=== PATIENT | male | born 1960 | race Two or more races ===

== ENCOUNTER 2019-12-11 23:47 | Emergency (ER) | payer MEDICAID ==
[~2019-12-11] VITALS: Ht 172.7 cm; Wt 83.9 kg
[2019-12-11 23:58] VITALS: Ht 172.7 cm; Wt 83.9 kg
[2019-12-12 00:23] LABS: BASOPHIL % 0.5 % (0-2)
[2019-12-12 00:27] LABS: PLATELET COUNT 114 x10^3mcL (130-400); RED CELL DISTRIBUTION WIDTH 22.6 % (11.5-14.5)
[2019-12-12 00:35] LABS: rbc morphology (normal/abnorm) ABNORMAL (NORMAL)
[2019-12-12 00:36] LABS: acanthocyte (spur cell) 1+; schistocyte (helmet cell) 1+
[2019-12-12 00:53] LABS: CALCIUM 7.6 mg/dL (8.5-10.1); CARBON DIOXIDE 21.4 mmol/L (21-32); CREATININE SERUM 1.5 mg/dL (0.7-1.3); POTASSIUM SERUM 4.2 mmol/L (3.5-5.1)
[2019-12-12 00:58] LABS: TOTAL PROTEIN, SERUM 6.4 g/dL (6.4-8.2)
[2019-12-12 01:51] LABS: ALBUMIN 1.9 g/dL (3.4-5.0)
[2019-12-12 07:34] VITALS: BP 114/58
== END 2019-12-12 07:34 | disposition home or self-care (01) ==
LOC: ED 23:47
PROVIDERS: Emergency Medicine
DX: R18.8 Other ascites (principal); R07.89 Other chest pain
CPT/HCPCS: 36415; 49083; Q0092

== ENCOUNTER 2020-02-09 09:48 | Emergency (ER) | payer MEDICAID ==
[~2020-02-09] VITALS: Ht 182.9 cm; Wt 68.0 kg
[2020-02-09 10:03] VITALS: Ht 182.9 cm; Wt 68.0 kg
[2020-02-09 13:26] VITALS: BP 111/67
== END 2020-02-09 13:26 | disposition home or self-care (01) ==
LOC: ED 09:48
DX: R18.8 Other ascites (principal)
CPT/HCPCS: 49083